=== PATIENT | female | born 1950 | race Caucasian/White ===

== ENCOUNTER 2024-09-12 12:29 | Outpatient (CLI) | payer MEDICARE ==
[2024-09-12 13:21] LABS: ANION GAP 10 (8-16); BLOOD UREA NITROGEN 11 MG/DL (7-18); BUN/CREATININE RATIO 11.7 (10.0-20.0); CALCIUM 9.3 MG/DL (8.5-10.1); CHLORIDE 105 MMOL/L (99-107); CREATININE 0.94 MG/DL (0.40-0.90); GLUCOSE 129 MG/DL (70-104); POTASSIUM 3.9 MMOL/L (3.5-5.1); SODIUM 140 MMOL/L (135-145); TOTAL CARBON DIOXIDE 24.6 MMOL/L (24-32); eGFR 58 ML/MIN
[2024-09-12] MEDS ORDERED: iohexol 350MG/ML 100ml bottle IV ONE (13:25)
== END 2024-09-12 23:59 | disposition home or self-care (01) ==
LOC: RAD 12:29
PROVIDERS: ATTEND Internal Medicine Interventional Cardiology
DX: I71.20 Thoracic aortic aneurysm, without rupture, unspecified (principal); I82.512 Chronic embolism and thrombosis of left femoral vein; I51.7 Cardiomegaly; N28.1 Cyst of kidney, acquired
CPT/HCPCS: 36415; 71275; 80048; Q9967